=== PATIENT | female | born 1945 | race Caucasian/White ===

== ENCOUNTER → 2023-09-05 17:59 | Outpatient (REF) | payer MEDICARE, SELFPAY | LOC: MRI 3T 17:59 | PROVIDERS: ATTENDING PHYSICIAN Nurse Practitioner | DX: H53.9 Unspecified visual disturbance (principal); R42 Dizziness and giddiness; G31.84 Mild cognitive impairment of uncertain or unknown etiology | CPT/HCPCS: 70553; A9575 ==

== ENCOUNTER → 2024-07-17 11:27 | Outpatient (REF) | payer MEDICARE, SELFPAY ==
[2024-07-17 13:38] LABS: ALT (SGPT) 18 U/L (0-35); AST (SGOT) 24 U/L (14-36); Albumin 4.5 g/dl (3.5-5.0); Alkaline Phosphatase 77 U/L (38-126); Blood Urea Nitrogen 23 mg/dl (7-17); Calcium 9.6 mg/dl (8.4-10.2); Carbon Dioxide 27 mmol/L (22-30); Chloride 107 mmol/L (98-107); Glucose 98 mg/dl (70-99); Potassium 4.6 mmol/L (3.5-5.1); Sodium 140 mmol/L (135-145); Total Bilirubin 0.8 mg/dl (0.2-1.3); Total Cholesterol 225 mg/dl (50-199); Total Protein 7.3 g/dl (6.3-8.2); Triglyceride 72 mg/dl (10-149); Very Low Density Lipoprotein 14 mg/dl (0-30); eGFR > 60.00
[2024-07-17 14:01] LABS: HDL Cholesterol 119 mg/dl; LDL Cholesterol, Calculated 92 mg/dl
[2024-07-17 14:58] LABS: TSH 1.84 uIU/ml (0.47-4.68)
== END ==
LOC: REG 11:27
PROVIDERS: ATTENDING PHYSICIAN Nurse Practitioner; FAMILY PHYSICIAN Internal Medicine
DX: E78.5 Hyperlipidemia, unspecified (principal); R53.83 Other fatigue; R73.01 Impaired fasting glucose
CPT/HCPCS: 36415; 80053; 80061; 84443

== ENCOUNTER 2024-10-24 13:46 | Outpatient (RCR) | payer MEDICARE, SELFPAY | END 2024-10-24 23:59 | disposition home or self-care (01) | LOC: ROT 13:46 | PROVIDERS: ATTENDING PHYSICIAN Hospitalist; FAMILY PHYSICIAN Internal Medicine | DX: T23.261D Burn of second degree of back of right hand, subsequent encounter (principal); Z73.6 Limitation of activities due to disability; X11.8XXD Contact with other hot tap-water, subsequent encounter | CPT/HCPCS: 97110; 97166; 97535 ==